=== PATIENT | female | born 1965 | race Caucasian/White ===

== ENCOUNTER 2017-12-03 05:24 | Day surgery (SDC) | payer BC ==
[~2017-12-03] VITALS: Ht 160 cm; Wt 81.6 kg
--- NOTE | ~2017-12-03 | P ---
[facility] [place] [address] PROCEDURE REPORT Name: PATRICK DUNCAN Room #: DEP [facility]..#: [id number] Admission: 12/03/17 Attend Phys: Jaspal Perry Discharge: 12/03/17 Date of : 67 Report #: [id number] THIS REPORT FOR: //name// CC: Jaspal Clements MD DATE OF SERVICE: 12/03/2017 PROCEDURE PERFORMED: Endoscopic retrograde cholangiopancreatography with sphincterotomy and stone removal and bleeding control. HISTORY OF PRESENT ILLNESS: The patient is a 51-year-old female, with a history of intermittent right upper quadrant abdominal pain, who underwent a laparoscopic cholecystectomy by Dr. Clements last , which was 11/27/2017. Intraoperative cholangiogram showed a single filling defect consistent with a common bile duct stone. The patient has done well since her surgery. She denies any significant abdominal pain other than an episode last evening. No nausea or vomiting. No fevers or chills. Her incisions are healing well. The patient has had a previous tubal ligation. She is allergic to LEVAQUIN. She is not on any NSAIDs or blood thinners. DESCRIPTION OF PROCEDURE: The risks and benefits of the procedure were explained to the patient, those risks including, but not limited to, bleeding, perforation, the risk of sedation as well as potential risk for post ERCP pancreatitis. She understood these risks and gave informed consent. The procedure was performed under general anesthesia in the interventional radiology suite. Ancef 1 g was given prior to the procedure. A 50 mg indomethacin rectal suppository was also given prior to the procedure. Next, using a standard Olympus ERCP side-viewing scope, the scope was placed in the patient's mouth and advanced under direct vision through the esophagus, stomach and into the second portion of the duodenum at which point the major papilla was identified and normal in appearance. There was no evidence of bile drainage initially. Next, using a [employer]a-[employer] 0.025 dome-tipped catheter, the common bile duct was cannulated without difficulty and a cholangiogram was obtained. There was a single filling defect within the distal common bile duct consistent with a stone. The intrahepatic ducts were normal. There was no evidence of bile leak. At this point, a guidewire was advanced into the intrahepatic ducts and a sphincterotomy was performed. There was bleeding after the sphincterotomy was performed. At this point, the sphincterotome was removed and a balloon catheter was inserted over the guidewire. Several balloon sweeps were then performed. Single stone was removed without difficulty. Next, a balloon occlusion cholangiogram was obtained. No further filling defects were noted. There was good bile drainage noted after sphincterotomy and stone removal. At this point, there still appeared to be a small amount of bleeding from the sphincterotomy [address] [address] PROCEDURE REPORT Name: PATRICK DUNCAN Room #: DEP [facility] Meghna#: [id number] Admission: 12/03/17 Attend Phys: Jaspal Perry Discharge: 12/03/17 Date of : 67 Report #: [id number] site. Therefore, I injected it with a total of 2 mL of epinephrine and then also used a balloon catheter to help tamponade this area. There was no further bleeding after epinephrine injection. At this point, the wire was withdrawn as well as the scope and the procedure terminated. The patient tolerated the procedure well. IMPRESSION: 1. Choledocholithiasis, status post endoscopic retrograde cholangiopancreatography with sphincterotomy and a single stone removal as described above. 2. Intrahepatic ducts were normal. 3. Small amount of bleeding from sphincterotomy site. This was treated with epinephrine and balloon tamponade. No further bleeding noted. RECOMMENDATIONS: Observe the patient post procedure. Thank you for allowing me to participate in her care. <ELECTRONICALLY SIGNED> By: Jaspal Caldera MD 12/06/17 [id number] [id number] Jaspal Caldera MD /nt
[~2017-12-03 05:24] MED LIST: ESCITALOPRAM OX10 MG PO; NORCO 5-325 TA1 EACH PO; SYNTHROID50 MCG PO
== END 2017-12-03 13:25 | disposition home or self-care (01) ==
LOC: TBA 05:24 → OR 05:24
DX: K80.50 Calculus of bile duct without cholangitis or cholecystitis without obstruction (principal); E03.9 Hypothyroidism, unspecified; K21.9 Gastro-esophageal reflux disease without esophagitis; F32.9 Major depressive disorder, single episode, unspecified; F41.9 Anxiety disorder, unspecified; Z98.890 Other specified postprocedural states; Z90.49 Acquired absence of other specified parts of digestive tract; Z98.51 Tubal ligation status; Z88.8 Allergy status to other drugs, medicaments and biological substances; Z79.899 Other long term (current) drug therapy
CPT/HCPCS: 62110; 62900; 70005